=== PATIENT | female | born 1955 | race Caucasian/White ===

== ENCOUNTER → 2021-10-18 | Outpatient (CLI) | payer MEDICARE ==
[2021-10-18 14:59] LABS: HGB 12.4 gm/dL (11.4-16.0); MCH 28.3 pg (25.0-35.0); MCHC 31.9 g/dL (31.0-37.0); MCV 88.6 fL (80.0-100.0); Mean Platelet Volume 7.7; Platelet Count 357 k/uL (150-450); RBC 4.39 m/uL (3.80-5.40); RDW 14.6 % (11.5-15.5); WBC 9.6 k/uL (3.8-10.6)
[2021-10-18 15:13] LABS: ALT 19 U/L (4-34); AST 22 U/L (14-36); African American GFR (CKD) >90 (>60 ml/min/1.73 sqM); Albumin 4.1 g/dL (3.5-5.0); Alkaline Phosphatase 129 U/L (38-126); Anion Gap 12 mmol/L; Blood Urea Nitrogen 12 mg/dL (7-17); Calcium 9.3 mg/dL (8.4-10.2); Carbon Dioxide 27 mmol/L (22-30); Chloride 96 mmol/L (98-107); Glucose 107 mg/dL (74-99); Non-African American GFR(CKD) 80 (>60 ml/min/1.73 sqM); Potassium 3.9 mmol/L (3.5-5.1); Sodium 135 mmol/L (137-145); Total Bilirubin 0.3 mg/dL (0.2-1.3); Total Protein 7.2 g/dL (6.3-8.2)
[2021-10-18 15:45] LABS: INR 0.9 (<1.2); Partial Thromboplastin Time 24.2 sec (22.0-30.0)
[2021-10-18 16:24] LABS: Appearance,Urine Clear (Clear); Bilirubin,Urine Negative (Negative); Blood,Urine Negative (Negative); Color,Urine Light Yellow; Glucose,Urine (UA) Negative (Negative); Ketones,Urine Negative (Negative); Leukocyte Esterase,Urine Small (Negative); Nitrite,Urine Negative (Negative); PH, Urine 6.5 (5.0-8.0); Protein,Urine Negative (Negative); RBC,Urine <1 /hpf (0-5); Specific Gravity,Urine 1.005 (1.001-1.035); Urobilinogen,Urine <2.0 mg/dL (<2.0); WBC,Urine 15 /hpf (0-5)
== END | disposition home or self-care (01) ==
LOC: LABPAT 13:41
PROVIDERS: ATTEND Orthopaedic Surgery Sports Medicine
DX: Z01.812 Encounter for preprocedural laboratory examination (principal); Z79.01 Long term (current) use of anticoagulants
CPT/HCPCS: 36415; 80053; 81001; 85027; 85610; 85730; 87070

== ENCOUNTER 2021-10-28 06:17 | Observation (INO) | payer MEDICARE ==
[2021-10-22 10:42] VITALS: BMI 49.8
[~2021-10-28 06:17] MED LIST: ACETAMINOPHEN TAB 500 MG TAB PO PRN; GABAPENTIN 300 MG CAP PO PRN; MELOXICAM 7.5 MG TAB PO PRN; ONDANSETRON 4 MG/2 ML VIAL IVP PRN; TRANEXAMIC ACID 1,000 MG in SODIUM CHLORIDE 0.9% 100 ML IVPB PRN; VANCOMYCIN 2,000 MG in SODIUM CHLORIDE 0.9% 500 ML 500 ML IVPB PRN
[2021-10-28] MEDS ORDERED: DEXAMETHASONE SOD PHOSPHATE 4 MG/ML 1 ML VIAL IV ONE (06:43)
[2021-10-28] MEDS ORDERED: LIDOCAINE 1% (10MG/ML) FOR IV START INTRADERMA PRN (06:43)
[2021-10-28] MEDS ORDERED: MIDAZOLAM 2 MG/2 ML VIAL IV PRN (06:43)
[2021-10-28] MEDS ORDERED: ONDANSETRON 4 MG/2 ML VIAL IVP PRN ×2 (07:00→08:15)
[2021-10-28] MEDS ORDERED: HYDROmorphone 0.5 MG/0.5 ML SYRINGE IVP PRN ×2 (07:00→08:15)
[2021-10-28] MEDS: LACTATED RINGERS 1,000 ML IV SCH ×3 (07:02→23:02)
[2021-10-28] MEDS ORDERED: fentaNYL (PF) 50 MCG/ML 2 ML AMP IV ONE (07:33)
[2021-10-28] MEDS ORDERED: traMADol 50 MG TAB PO PRN (08:15)
[2021-10-28] MEDS ORDERED: MAGNESIUM HYDROXIDE 2,400 MG/10 ML CUP PO PRN (08:15)
[2021-10-28] MEDS ORDERED: bisacodyL 10 MG SUPP RECTAL PRN (08:15)
[2021-10-28] MEDS ORDERED: TEMAZEPAM 15 MG CAP PO PRN (08:15)
[2021-10-28] MEDS ORDERED: HYDROmorphone 0.2 MG/1 ML SYRINGE IVP PRN (08:15)
[2021-10-28] MEDS ORDERED: ACETAMINOPHEN TAB 325 MG TAB PO PRN (08:15)
[2021-10-28] MEDS ORDERED: NA PHOS,M-B/NA PHOS,DI-BA 133 ML ENEMA RECTAL PRN (08:15)
[2021-10-28] MEDS ORDERED: NALOXONE 0.4 MG/ML 1 ML VIAL IV PRN (08:15)
[2021-10-28] MEDS ORDERED: diazePAM 5 MG TAB PO PRN (08:15)
[2021-10-28] MEDS ORDERED: HYDROcodone/APAP 7.5-325MG 1 EACH TAB PO PRN (08:18)
[2021-10-28] MEDS ORDERED: SODIUM CHLORIDE 0.9% 100 ML BAG ONE (08:19)
[2021-10-28] MEDS ORDERED: PROPOFOL 10 MG/ML 20 ML VIAL IV ONE (08:19)
[2021-10-28] MEDS ORDERED: ROPIVACAINE 5 MG/ML 30 ML VIAL ONE (08:19)
[2021-10-28] MEDS ORDERED: TRANEXAMIC ACID 1,000 MG/10 ML VIAL ONE (08:19)
[2021-10-28] MEDS ORDERED: MIDAZOLAM 2 MG/2 ML VIAL ONE (08:19)
[2021-10-28] MEDS ORDERED: SODIUM CHLORIDE 0.9% (PF) 10 ML VIAL ONE (08:19)
[2021-10-28] MEDS ORDERED: ceFAZolin 1,000 MG VIAL IVPB ONE (08:21)
[2021-10-28] MEDS ORDERED: ceFAZolin 3,000 MG in SODIUM CHLORIDE 0.9% IRRIGATIO 3,000 ML IRRIGATION ONE (08:55)
[2021-10-28] MEDS ORDERED: ROPIVACAINE 0.2%-NS ON-Q PUMP 1,090 MG, EMPTY PAIN BALL 1 EACH MISCELLANE PRN (10:05)
--- NOTE | 2021-10-28 10:08 | P.ANPRN ---
Procedure Note - Anesthesia - Nerve Block Performed Left Adductor Canal Time Out Performed: Yes Date of Procedure: 10/28/21 Procedure Start Time: 07:36 Procedure Stop Time: 07:48 Location of Patient: PreOp Indication: Acute Post-Operative Pain, Requested by Surgeon (Dr Bazzi) Sedation Type: Sedate with meaningful contact maintained Preparation: Sterile Prep, Sterile Dressing Position: Supine Catheter: Indwelling Needle Types: Pajunk Needle Gauge: 21 Ultrasound used to visualize needle placement: Yes Ultrasound used to observe medication spread: Yes Injectate: 0.5% Ropivacaine (see comment for volume) (15cc) Blood Aspirated: No Pain Paresthesia on Injection Noted: No Resistance on Injection: Normal Image Stored and Saved: Yes Events: Uneventful and Well Tolerated
--- NOTE | 2021-10-28 10:11 | P.ANPRN ---
Procedure Note - Anesthesia - Nerve Block Performed Left iPack Time Out Performed: Yes Date of Procedure: 10/28/21 Procedure Start Time: 07:49 Procedure Stop Time: 07:59 Location of Patient: PreOp Indication: Acute Post-Operative Pain, Requested by Surgeon (Dr Bazzi) Sedation Type: Sedate with meaningful contact maintained Preparation: Sterile Prep Position: Supine Catheter: None Needle Types: Pajunk Needle Gauge: 21 Ultrasound used to visualize needle placement: Yes Ultrasound used to observe medication spread: Yes Injectate: 0.5% Ropivacaine (see comment for volume) (15cc + 5cc PF Normal saline) Blood Aspirated: No Pain Paresthesia on Injection Noted: No Resistance on Injection: Normal Image Stored and Saved: Yes Events: Uneventful and Well Tolerated
--- NOTE | 2021-10-28 10:53 | XR ---
Limited left knee HISTORY: Status post left knee arthroplasty 2 views of the left knee Patient is status post left knee arthroplasty. Some small ossific fragments are noted lateral to the joint. Alignment is maintained. Lucency is present within the soft tissues. IMPRESSION: Orthopedic follow-up, postop changes as described
--- NOTE | 2021-10-28 12:54 | OP ---
OPERATIVE REPORT DATE OF SURGERY: 10/28/2021 SURGEON: Tylor Bazzi MD. VIDEO GAMES STORYWRITER: JOSE Thurman. PREOPERATIVE DIAGNOSIS: Left knee osteoarthrosis. POSTOPERATIVE DIAGNOSIS: Left knee osteoarthrosis. OPERATION: Left total knee arthroplasty. ANESTHESIA: Spinal with sedation. ESTIMATED BLOOD LOSS: 100 mL. TOURNIQUET: Tourniquet time was 51 minutes at 250 mmHg. COMPLICATIONS: None apparent. DRAINS: None. DISPOSITION: Postanesthesia care unit. INDICATIONS: Tamica is a very pleasant 65-year-old female with longstanding history of left knee pain. History and physical examination are consist with advanced left knee osteoarthrosis. She has been through significant nonoperative management up to this point. Further treatment options were discussed and she decided to go forward with a left total knee arthroplasty. The risks of the procedure were discussed with her in detail. These risks include but are not limited to risk of infection, nerve damage, bleeding, pain, and a small risk of deep vein thrombosis which could lead to fatal pulmonary embolism. There is also risk of loosening of the implant which could require revision operation. The patient understands these risks. All of her questions were answered to her satisfaction. Appropriate informed consent was obtained. DESCRIPTION OF THE PROCEDURE: The patient identified in preoperative holding area. Surgical site was marked by both the patient and myself. She was given 2 grams of Ancef IV for prophylactic purposes. She was then transferred to the operative suite. She was placed supine on the operative table. Spinal anesthetic was then administered, dosed per the anesthesia department without apparent complication. Examination under anesthesia was then performed. The patient was 2-3 degrees shy of full extension. She had 95 degrees of flexion. The medial collateral ligament, lateral collateral ligament and posterior cruciate ligaments were stable. The tourniquet was then placed high on the left upper thigh well-padded in preparation for surgery. The patient's left lower extremity was then prepped and draped in usual sterile fashion. Standard surgical pause undertaken to ensure that we were operating the correct site and that appropriate preoperative antibiotics were given. All staff in the room were in agreement. We proceeded. The outlines of the patella marked with a surgical pen. The planned 12 cm vertical incision centered over the patella was marked with a surgical pen. The leg was then exsanguinated with an Esmarch dressing. The knee was then flexed and tourniquet inflated to 250 mmHg. Total tourniquet time for the procedure was 51 minutes. The incision was then made with a 10 blade scalpel. Dissection was carried down sharply through the overlying fascia. Great care was taken to minimize the skin flaps. The knee was then exposed using a standard medial parapatellar approach. A small cuff of quadriceps tendon was then left for suturing. She was in a bit of varus preoperatively. A standard medial release was then made. Superficial medial collateral ligament dissected off the bone around the posterior aspect of the proximal tibia. The meniscus was then excised as well. The lateral meniscus was also released anteriorly. The leg was then externally rotated. The patella was everted. The knee was flexed. Retractors were then placed to protect the collateral ligaments. I then proceeded to remove the infrapatellar fat pad. This was excised sharply tangentially with fibers of the patellar tendon. I then proceeded to remove the peripheral osteophytes. This was done with a rongeur. I then proceeded with a distal resection. She did have near full extension. A planned 9 mm resection was then done. The femoral canal was then entered in midline of the left femur approximately 10 mm anterior to the origin of posterior cruciate ligament. The blanca was then advanced down the center of the femur and placed intramedullary. Based on the preoperative radiographs, the angle between the anatomic and mechanical axis of the femur was approximately 4-5 degrees of valgus angle. The femoral cutting guide was then set at 4 degrees for the left knee. The distal femoral cutting guide was then advanced over the intramedullary blanca. This was seated firmly against the femur. I then, as mentioned, planned to take 9 mm off the distal femur. The cutting block was then secured onto the femur with pins. The jig was then removed. The distal cut was made through the slot of the block. The pins were then removed. The distal cutting block was removed. The accuracy of the distal femoral cuts was checked with two flat bars. I then proceeded with femoral sizing. Posterior referencing sizing guide was held firmly against the resected distal surface of the femur. The posterior condyles were resting on the posterior plane of the guide. The sizing guide was then placed on the anterior femur. The size was measured as a size 7. I then assessed for femoral rotation. The plan was for 3 degrees external rotation. Three degrees of external rotation was placed onto the jig. These holes were then marked. I then confirmed the rotation by three separate methods. This was done using epicondylar axis as well as Whitesides line and posterior referencing. It was deemed that the external rotation was proper. I then went forward and placed a femoral cutting block. This was placed over the previously placed pin holes. The Richie wing was then placed on the anterior slots to ensure that we would not notch the anterior femur with the anterior femoral cut. I then proceeded with the anterior femoral cut. This was flush with the anterior cortex of the femur. Posterior cuts were then made followed by the anterior chamfer cut and then the posterior chamfer cut. The cutting block was then removed. Throughout the resection, the collateral ligaments were protected with retractors. I then placed a trial size 7 femur. It was slightly wide but the narrow fit nicely and it fit flush with the distal end of the femur. The drill holes were then made. I then proceeded with the tibial cut. I planned for cruciate-retaining knee. The guide was placed and set for varus, valgus and for slope. The height was set for approximate 2 mm resection from the medial tibial plateau which was the lower side. I was happy with the alignment and the amount of resection. The cutting block was then pinned to the proximal tibia. The alignment rods were removed and the proximal tibia was resected with a reciprocating saw. Again, this was done with retractors protecting the collateral ligaments as well as the posterior cruciate ligament. I then proceeded to evaluate the flexion and extension gaps. A 10 mm block was then placed. The flexion and extension gaps were equal. I then proceeded with resection of the posterior osteophytes. She had very minimal posterior osteophytes. This is done using a curved osteotome. This resected the posterior osteophytes and posterior capsule stripping was done off the posterior aspect of the femur. The osteophytes were then removed. I then proceeded to resection of the patella. The thickness of the patella was measured using the caliper. The thickness was 22 mm. The thickness of the anticipated patellar dome was taken into account. The resection was then performed and confirmed to be equal in four quadrants using a caliper. Approximately 14 mm of bone remained after resection. A 29 x 8 standard patellar trial was then placed. The holes drilled and the trial was then placed. I then proceeded with sizing the tibial plate. A size D tibial plate fit very nicely. I then placed the trial femur, the tibial tray and the patellar button. A 10 mm trial tibial insert was also placed. The components fit very nicely. She had full extension and flexion. The extension and flexion gaps were equal and stable to both varus and valgus stress. The patella tracked appropriately. The tibial tray rotation was then marked with a Bovie. This was externally rotated properly. I then proceed with tibial preparation. First we drilled the femoral holes and removed the femoral component. The tibial tray was then set for proper external rotation as well as mediolateral placement on the tibia. It was then pinned into place. I then proceeded with punching the keel. I then decided to proceed with cementing of all of our components. The knee was thoroughly irrigated with sterile saline solution via pulse lavage. The lateral geniculate artery was identified and cauterized. All blood was removed from the bone of the tibia, femur and patella with pulse lavage. I then proceeded with cementing. Two packs of antibiotic bone cement were prepared on the back table by the certified ophthalmic surgical assistant. I then proceed with cementing of the tibia first. The cement was impacted into the keel as well as deeply seated into the bone. A second coat of cement was then placed. The tibia was then impacted in place. Excess cement was removed with Pitts[place]'s and jokers. I then proceeded with cementing the femoral component. The femoral component was also cemented using standard technique. Excess cement was removed. A 10 mm trial insert was then placed in the knee. It was brought in full extension with a constant axial load placed until the cement had hardened. The patellar component was then cemented. This was held firmly with a compressive device until the cement had dried. When the cement had dried, the knee was taken out of extension. All excess cement was removed from around the prosthesis. I then trialed the knee with a 10 mm insert. Flexion and extension gaps were appropriate. I then trialed with a 12 mm insert. The flexion and extension gaps felt much better. The knee was stable with a 12 mm insert. It came in full extension. I decided to go forward with a 12 mm cross-linked medial congruent cruciate-retaining tibial insert. Polyethylene was then placed onto the tibial tray and locked into place. The knee was then reduced. The knee was again further irrigated with sterile saline solution with antibiotic added. The tourniquet was then deflated. Total tourniquet time for the procedure was 51 minutes at 250 mmHg. Final components were Alok Persona size 7 narrow cruciate-retaining femoral component, a size D tibial tray, a 12 mm medial congruent cruciate-retaining polyethylene insert, and a 29 x 8 mm patella. I then proceeded with closure. Again, the knee was thoroughly irrigated. The quadriceps tendon and the medial retinaculum were reapproximated with #2 Ethibond suture. The extensor mechanism was then closed with a running #2 Quill suture. Subcutaneous tissues were closed with 2-0 Vicryl interrupted suture. The skin was closed with a running 3-0 Quill suture. Dermabond was applied to the incision. Sterile compressive dressing was then applied. All sponge and needle counts were deemed correct prior to closure. The patient tolerated procedure without apparent complication. She was transferred to the recovery room in stable condition. MMODL / IJN: [id number] /
[2021-10-28] MEDS ORDERED: ALPRAZolam 1 MG TAB PO PRN (15:02)
--- NOTE | 2021-10-28 15:10 | P.CONS ---
History of Present Illness - Reason for Consult Consult date: 10/28/21 - Chief Complaint Knee pain - History of Present Illness 65 y/o female with history of morbid obesity, hypertension, depression, anxiety, hypercholesterolemia here for left total knee replacement. Due to end-stage arthritis of the left knee she underwent left total knee arthroplasty today. Patient was seen postoperatively, she was in severe pain in the left knee. Ice was applied. Otherwise no complaints. No chest pain, shortness of breath. No fevers or chills. No recent illness. No nausea or vomiting, diarrhea. Review of Systems Complete review of system performed, pertinent positives per HPI, otherwise negative Past Medical History Past Medical History: Asthma, Cancer, CVA/TIA, GERD/Reflux, Hyperlipidemia, Hype rtension, Osteoarthritis (OA), Skin Disorder, Sleep Apnea/CPAP/BIPAP Additional Past Medical History / Comment(s): hx. breast cancer February 2021-had surg. & radiation, past hx. bronchitis, had covid 2019, had TIA years ago- no residual effects, couple sores on arms from itching, uses CPAP History of Any Multi-Drug Resistant Organisms: None Reported Past Surgical History: Adenoidectomy, Breast Surgery, Hysterectomy, Orthopedic Surgery, Tonsillectomy Additional Past Surgical History / Comment(s): multiple breast biopsies, right breast partial mastectomy, juan carlos CTS, ORIF left ankle, hemorrhoidectomy Past Anesthesia/Blood Transfusion Reactions: Postoperative Nausea & Vomiting (PONV) Additional Past Anesthesia/Blood Transfusion Reaction / Comm: claustrophobic Past Psychological History: Anxiety Smoking Status: Former smoker Past Alcohol Use History: Rare Additional Past Alcohol Use History / Comment(s): quit smoking >30 yrs. ago, smoked for couple years only Past Drug Use History: None Reported - Past Family History Mother Family Medical History: Cancer Medications and Allergies Home Medications Medication Instructions Recorded Confirmed Type ALPRAZolam [Xanax] 1 mg PO Q8H PRN 10/22/21 10/28/21 History Anastrozole [Arimidex] 1 mg PO DAILY 10/22/21 10/28/21 History Atorvastatin [Lipitor] 40 mg PO HS 10/22/21 10/28/21 History Bisoprolol-Hctz 10-6.25 mg [Ziac 1 tab PO HS 10/22/21 10/28/21 History 10-6.25 MG] Calcium Carbonate/Vitamin D3 1 each PO DAILY 10/22/21 10/28/21 History [Calcium 500-Vit D3 15 Mcg (600 Iu)] FLUoxetine HCL [PROzac] 80 mg PO HS 10/22/21 10/28/21 History Ibuprofen [Motrin] 800 mg PO Q8H PRN 10/22/21 10/28/21 History Loratadine-Pseudoeph 10-240 mg 1 tab PO DAILY 10/22/21 10/28/21 History [Claritin-D 24 Hour] Omeprazole [PriLOSEC] 40 mg PO HS 10/22/21 10/28/21 History Oxybutynin Chloride [Ditropan XL] 5 mg PO HS 10/22/21 10/28/21 History lamoTRIgine [LaMICtal] 75 mg PO HS 10/22/21 10/28/21 History traMADol HCL [Ultram] 50 mg PO Q6H PRN 10/22/21 10/28/21 History Allergies Allergy/AdvReac Type Severity Reaction Status Date / Time doxycycline Allergy Rash/Hives Verified 10/28/21 06:56 Penicillins Allergy Unknown Verified 10/28/21 06:56 Childhood Physical Exam Vitals: Vital Signs Temp Pulse Pulse Resp BP Pulse Ox 10/28/21 15:05 85 16 114/76 94 L 10/28/21 13:00 66 16 114/62 97 10/28/21 12:30 68 16 121/58 100 10/28/21 12:00 71 16 115/60 100 10/28/21 11:30 65 16 120/60 100 10/28/21 11:07 66 16 125/65 100 10/28/21 10:52 67 16 119/58 100 10/28/21 10:37 68 16 122/65 99 10/28/21 10:22 97 F L 73 14 133/68 99 10/28/21 07:47 78 16 126/60 99 10/28/21 06:54 99.2 F 85 18 186/93 97 Intake and Output 10/28/21 10/28/21 10/28/21 06:59 14:59 22:59 Intake Total 901 Output Total 100 Balance 801 Intake: IV 901 Output: Estimated Blood Loss 100 Other: Weight 131 kg 131 kg Constitutional: No acute distress, conversant, pleasant Eyes:Anicteric sclerae, moist conjunctiva, no lid-lag, PERRLA, ENMT: Oropharynx clear, no erythema, exudates Neck: Supple, FROM, no masses, or JVD, No carotid bruits, No thyromegaly Lungs: Clear to auscultation, Clear to percussion, Normal respiratory effort, no accessory muscle use Cardiovascular: Heart regular in rate and rhythm, No murmurs, gallops, or rubs, No peripheral edema Abdominal: Soft, Nontender, no guarding, rebound or rigidity, Normoactive bowel sounds, No hepatomegaly, No splenomegaly, No palpable mass Skin: Normal temperature, tone, texture, turgor, no induration, No subcutaneous nodules, No rash, lesions, No ulcers Extremities: Left knee dressing applied. No digital cyanosis, No clubbing, Pedal pulses intact and symmetrical, Radial pulses intact and symmetrical, No calf tenderness Psychiatric: Alert and oriented to person, place and time, appropriate affect, intact judgement Neuro: Muscles Strength 5/5 in all 4 extremities, Sensation to light touch grossly present throughout, Cranial nerves II-XII grossly intact, no focal sensory deficits Assessment and Plan Plan: Status post left total knee arthroplasty post operative day #0 Pain control and DVT prophylaxis per your surgical management PT Essential hypertension Resume bisoprolol/hctz meds Monitor blood pressure Hypercholesterolemia Resume statin Depression/anxiety Resume Paxil, lamotrigine and Ativan when necessary. DVT prophylaxis SCDs and aspirin Anticipated discharge: In a.m. Disposition: Home
[2021-10-28] MEDS: ceFAZolin 3 GM in SODIUM CHLORIDE 0.9% 100 ML IVPB SCH (15:41)
[2021-10-28] MEDS: HYDROmorphone 0.5 MG/0.5 ML SYRINGE IVP PRN ×3 (15:50→22:56)
[2021-10-28] MEDS: SENNOSIDES-DOCUSATE SODIUM 1 EACH TAB PO SCH (22:05)
[2021-10-28] MEDS: FLUoxetine HCL 20 MG CAP PO SCH (22:05)
[2021-10-28] MEDS: OXYBUTYNIN XL 5 MG TAB.ER.24 PO SCH (22:06)
[2021-10-28] MEDS: BISOPROLOL-HCTZ 10-6.25 MG 1 EACH TAB PO SCH (22:06)
[2021-10-28] MEDS: ATORVASTATIN 40 MG TAB PO SCH (22:06)
[2021-10-28] MEDS: PANTOPRAZOLE 40 MG TABLET PO SCH (22:06)
[2021-10-28] MEDS: ASPIRIN 81 MG PO SCH (22:06)
[2021-10-28] MEDS: lamoTRIgine 25 MG TAB PO SCH (22:06)
[2021-10-29] MEDS: ceFAZolin 3 GM in SODIUM CHLORIDE 0.9% 100 ML IVPB SCH (01:03)
[2021-10-29] MEDS: HYDROcodone/APAP 7.5-325MG 1 EACH TAB PO PRN ×2 (02:17→09:42)
[2021-10-29] MEDS: hydrOXYzine pamoate 25 MG CAP PO PRN ×4 (02:17→20:10)
[2021-10-29] MEDS: HYDROmorphone 0.5 MG/0.5 ML SYRINGE IVP PRN ×2 (03:05→07:24)
[2021-10-29] MEDS: LACTATED RINGERS 1,000 ML IV SCH ×3 (06:30→19:27)
[2021-10-29] MEDS: MULTIVITAMINS, THERA 1 EACH TAB PO SCH (08:25)
[2021-10-29] MEDS: LORATADINE-PSEUDOEPH 5-120 MG 1 EACH TAB.ER.12H PO SCH ×2 (08:25→21:30)
[2021-10-29] MEDS: CALCIUM CARB-VIT D 500 MG-5 MCG TAB PO SCH (08:25)
[2021-10-29] MEDS: ASPIRIN 81 MG PO SCH ×2 (08:25→21:30)
--- NOTE | 2021-10-29 08:34 | P.PN ---
Progress Note - Text The patient is status post left adductor canal catheter placement. The catheter was placed for postoperative pain control, status post total left knee arthroplasty. Ropivacaine 0.2% is infusing at 10 mLs per hour. The patient has no complaints of[ left] lower extremity numbness or weakness. Patient's VAS score is 5-6 -10. She has received supplemental pain medicine from the service. It is difficult to tell whether the catheter is still in optimal position. Rate has been increased to 10 ML's per hour and may be increased to 12 mL's per hour if needed. Plan: continue infusion and adjust it as needed.
[2021-10-29 09:13] LABS: Basophils # (A) 0.01 X 10*3/uL (0.00-0.10); Basophils % (A) 0.1 %; Eosinophils # (A) 0 X 10*3/uL (0.04-0.35); Eosinophils % (A) 0 %; HCT 35.1 % (37.2-46.3); Lymphocytes # (A) 1.23 X 10*3/uL (0.90-5.00); MCH 27.4 pg (27.0-32.0); MCHC 31.3 g/dL (32.0-37.0); MCV 87.3 fL (80.0-97.0); Mean Platelet Volume 10.4 fL (9.5-12.2); Monocytes # (A) 1.26 X 10*3/uL (0.20-1.00); Monocytes % (A) 9.2 %; Neutrophils # (A) 11.05 X 10*3/uL (1.80-7.70); Neutrophils % (A) 81.1 %; Platelet Count 337 X 10*3/uL (140-440); RBC 4.02 X 10*6/uL (4.10-5.20); RDW 15.5 % (11.5-14.5); WBC 13.63 X 10*3/uL (4.50-10.00)
[2021-10-29] MEDS ORDERED: oxyCODONE-APAP 7.5-325MG 1 EACH TAB PO PRN (10:06)
--- NOTE | 2021-10-29 12:27 | P.PN ---
Subjective Progress Note Date: 10/29/21 Principal diagnosis: Left knee arthroplasty Patient is having severe pain in the left knee. She has been getting IV Dilaudid but it has not been adequate for pain control according to patient. Objective - Vital Signs Vital signs: Vital Signs Temp 97.8 F 10/29/21 08:00 Pulse 80 10/29/21 08:00 Resp 19 10/29/21 08:00 BP 121/65 10/29/21 08:00 Pulse Ox 92 L 10/29/21 08:00 Intake & Output 10/28/21 10/29/21 10/29/21 18:59 06:59 18:59 Intake Total 901 Output Total 100 Balance 801 Weight 131 kg Intake: IV 901 Output: Estimated Blood Loss 100 Other: Voiding Method Toilet Toilet # Voids 1 1 - Exam Constitutional: No acute distress, conversant, pleasant Eyes:Anicteric sclerae, moist conjunctiva, no lid-lag, PERRLA, ENMT: Oropharynx clear, no erythema, exudates Neck: Supple, FROM, no masses, or JVD, No carotid bruits, No thyromegaly Lungs: Clear to auscultation, Clear to percussion, Normal respiratory effort, no accessory muscle use Cardiovascular: Heart regular in rate and rhythm, No murmurs, gallops, or rubs, No peripheral edema Abdominal: Soft, Nontender, no guarding, rebound or rigidity, Normoactive bowel sounds, No hepatomegaly, No splenomegaly, No palpable mass Skin: Normal temperature, tone, texture, turgor, no induration, No subcutaneous nodules, No rash, lesions, No ulcers Extremities: Left knee dressing applied. No digital cyanosis, No clubbing, Pedal pulses intact and symmetrical, Radial pulses intact and symmetrical, No calf tenderness Psychiatric: Alert and oriented to person, place and time, appropriate affect, intact judgement Neuro: Muscles Strength 5/5 in all 4 extremities, Sensation to light touch grossly present throughout, Cranial nerves II-XII grossly intact, no focal sensory deficits - Labs CBC & Chem 7: 10/29/21 05:33 Labs: Abnormal Lab Results - Last 24 Hours (Table) 10/29/21 Range/Units 05:33 WBC 13.63 H (4.50-10.00) X 10*3/uL RBC 4.02 L (4.10-5.20) X 10*6/uL Hgb 11.0 L (12.0-15.0) g/dL Hct 35.1 L (37.2-46.3) % MCHC 31.3 L (32.0-37.0) g/dL RDW 15.5 H (11.5-14.5) % Immature Gran # 0.08 H (0.00-0.04) X 10*3/uL Neutrophils # 11.05 H (1.80-7.70) X 10*3/uL Monocytes # 1.26 H (0.20-1.00) X 10*3/uL Eosinophils # 0 L (0.04-0.35) X 10*3/uL Assessment and Plan Plan: Status post left total knee arthroplasty post operative day #0 Pain control and DVT prophylaxis per your surgical management PT Essential hypertension Resume bisoprolol/hctz meds Monitor blood pressure Hypercholesterolemia Resume statin Depression/anxiety Resume Paxil, lamotrigine and Ativan when necessary. DVT prophylaxis SCDs and aspirin Anticipated discharge: In a.m. Disposition: Home
[2021-10-29] MEDS: oxyCODONE-APAP 7.5-325MG 1 EACH TAB PO PRN ×2 (15:29→21:28)
--- NOTE | 2021-10-29 15:56 | P.PN ---
Subjective Progress Note Date: 10/29/21 Principal diagnosis: Left TKA Patient is seen at bedside this morning. She is postop day #1 from left total knee arthroplasty. She has pain at the surgical site as expected but denies any new complaints. She denies numbness, tingling or calf pain. Review of systems is negative for fever, chills, chest pain, shortness of breath or other Objective - Vital Signs Vital signs: Vital Signs Temp 97.8 F 10/29/21 08:00 Pulse 80 10/29/21 08:00 Resp 19 10/29/21 08:00 BP 121/65 10/29/21 08:00 Pulse Ox 92 L 10/29/21 08:00 Intake & Output 10/28/21 10/29/21 10/29/21 18:59 06:59 18:59 Intake Total 901 Output Total 100 Balance 801 Weight 131 kg Intake: IV 901 Output: Estimated Blood Loss 100 Other: Voiding Method Toilet Toilet # Voids 1 1 - Exam Inspection reveals a benign surgical wound. There is no active bleeding or drainage. Neurovascular status is intact throughout the lower extremity with motor and sensation fully intact. Calf is soft and nontender. 2+ dorsalis pedis pulse and less than 2 second cap refill is present. - Constitutional General appearance: Present: no acute distress - Labs CBC & Chem 7: 10/29/21 05:33 Labs: Abnormal Lab Results - Last 24 Hours (Table) 10/29/21 Range/Units 05:33 WBC 13.63 H (4.50-10.00) X 10*3/uL RBC 4.02 L (4.10-5.20) X 10*6/uL Hgb 11.0 L (12.0-15.0) g/dL Hct 35.1 L (37.2-46.3) % MCHC 31.3 L (32.0-37.0) g/dL RDW 15.5 H (11.5-14.5) % Immature Gran # 0.08 H (0.00-0.04) X 10*3/uL Neutrophils # 11.05 H (1.80-7.70) X 10*3/uL Monocytes # 1.26 H (0.20-1.00) X 10*3/uL Eosinophils # 0 L (0.04-0.35) X 10*3/uL Assessment and Plan (1) Osteoarthritis of left knee Narrative/Plan: She will continue with routine postop orthopedic protocol including pain management, wound care, PT, DVT prophylaxis and medical management. We will adjust pain medications to achieve better pain control. We Expect that she will transfer to home tomorrow Current Visit: Yes Status: Acute Code(s): M17.12 - UNILATERAL PRIMARY OSTEOARTHRITIS, LEFT KNEE SNOMED Code(s): 544584180854646 Time with Patient: Less than 30
[2021-10-29] MEDS: lamoTRIgine 25 MG TAB PO SCH (21:30)
[2021-10-29] MEDS: ATORVASTATIN 40 MG TAB PO SCH (21:30)
[2021-10-29] MEDS: BISOPROLOL-HCTZ 10-6.25 MG 1 EACH TAB PO SCH (21:30)
[2021-10-29] MEDS: PANTOPRAZOLE 40 MG TABLET PO SCH (21:30)
[2021-10-29] MEDS: FLUoxetine HCL 20 MG CAP PO SCH (21:30)
[2021-10-29] MEDS: OXYBUTYNIN XL 5 MG TAB.ER.24 PO SCH (21:30)
[2021-10-29] MEDS: SENNOSIDES-DOCUSATE SODIUM 1 EACH TAB PO SCH (21:30)
[2021-10-30] MEDS: LACTATED RINGERS 1,000 ML IV SCH ×3 (00:13→10:55)
[2021-10-30] MEDS: oxyCODONE-APAP 7.5-325MG 1 EACH TAB PO PRN ×3 (03:56→14:29)
--- NOTE | 2021-10-30 08:34 | XR ---
EXAMINATION TYPE: XR chest 2V DATE OF EXAM: 10/30/2021 COMPARISON: NONE HISTORY: Postoperative hypoxia. TECHNIQUE: Frontal and lateral views of the chest are obtained. FINDINGS: There is no focal air space opacity, pleural effusion, or pneumothorax seen. The cardiac silhouette size is enlarged. The osseous structures are intact. IMPRESSION: Cardiomegaly without acute pulmonary process.
[2021-10-30] MEDS: CALCIUM CARB-VIT D 500 MG-5 MCG TAB PO SCH (09:05)
[2021-10-30] MEDS: hydrOXYzine pamoate 25 MG CAP PO PRN ×2 (09:05→14:29)
[2021-10-30] MEDS: ASPIRIN 81 MG PO SCH (09:05)
[2021-10-30] MEDS: LORATADINE-PSEUDOEPH 5-120 MG 1 EACH TAB.ER.12H PO SCH (09:07)
[2021-10-30 09:44] LABS: ALT 13 U/L (4-34); AST 22 U/L (14-36); African American GFR (CKD) >90 (>60 ml/min/1.73 sqM); Albumin 3.2 g/dL (3.5-5.0); Albumin/Globulin Ratio 1.3; Alkaline Phosphatase 102 U/L (38-126); Anion Gap 7 mmol/L; Blood Urea Nitrogen 14 mg/dL (7-17); Calcium 8.5 mg/dL (8.4-10.2); Carbon Dioxide 28 mmol/L (22-30); Chloride 96 mmol/L (98-107); Globulin 2.5 g/dL; Glucose 128 mg/dL (74-99); Magnesium 1.6 mg/dL (1.6-2.3); Non-African American GFR(CKD) 84 (>60 ml/min/1.73 sqM); Potassium 3.4 mmol/L (3.5-5.1); Sodium 131 mmol/L (137-145); Total Bilirubin 0.5 mg/dL (0.2-1.3); Total Protein 5.7 g/dL (6.3-8.2)
--- NOTE | 2021-10-30 09:51 | P.DS ---
Providers Date of admission: 10/29/21 14:38 Expected date of discharge: 10/30/21 Attending physician: Tylor Bazzi Consults: 10/28/21 08:15 Consult Physician Routine Consulting Provider: Rosendo Balderas Consult Reason/Comments: post op medical management Do you want consulting provider notified?: Yes Primary care physician: Christine Kim MD - Discharge Diagnosis(es) (1) Osteoarthritis of left knee Current Visit: Yes Status: Acute (2) Status post total left knee replacement Current Visit: Yes Status: Acute Hospital Course: This is a 65-year-old female who was last seen with complaint of continued left knee pain. The patient has a known history of degenerative arthritis of the left knee and presents to discuss surgical options. After discussion and consideration the patient elects to proceed with total left knee arthroplasty. The patient is seen preoperatively by her primary care physician and cleared for surgery. The patient is admitted to [facility] for total left knee arthroplasty. The procedures performed without complication or sequelae. He is doing well postoperatively. Vital signs are stable at discharge. Labs are stable at discharge. the patient is ambulating well with walker with minimal assistance. The patient is discharged to home on postop day #1 pending medical clearance. Please see orders and refer to the [facility] rec for accurate list of medications. Patient Condition at Discharge: Good Plan - Discharge Summary Discharge Rx Participant: Yes New Discharge Prescriptions: New oxyCODONE HCL/ACETAMINOPHEN [Percocet 7.5-325 mg] 1 tab PO Q4HR PRN #42 tab PRN Reason: Pain Aspirin [Adult Low Dose Aspirin EC] 81 mg PO BID #60 tab Docusate [Colace] 100 mg PO BID #60 capsule No Action traMADol HCL [Ultram] 50 mg PO Q6H PRN PRN Reason: Pain Loratadine-Pseudoeph 10-240 mg [Claritin-D 24 Hour] 1 tab PO DAILY Atorvastatin [Lipitor] 40 mg PO HS ALPRAZolam [Xanax] 1 mg PO Q8H PRN PRN Reason: Anxiety Oxybutynin Chloride [Ditropan XL] 5 mg PO HS lamoTRIgine [LaMICtal] 75 mg PO HS Omeprazole [PriLOSEC] 40 mg PO HS Ibuprofen [Motrin] 800 mg PO Q8H PRN PRN Reason: Pain FLUoxetine HCL [PROzac] 80 mg PO HS Bisoprolol-Hctz 10-6.25 mg [Ziac 10-6.25 MG] 1 tab PO HS Anastrozole [Arimidex] 1 mg PO DAILY Calcium Carbonate/Vitamin D3 [Calcium 500-Vit D3 15 Mcg (600 Iu)] 1 each PO DAILY Discharge Medication List ALPRAZolam [Xanax] 1 mg PO Q8H PRN 10/22/21 [History] Anastrozole [Arimidex] 1 mg PO DAILY 10/22/21 [History] Atorvastatin [Lipitor] 40 mg PO HS 10/22/21 [History] Bisoprolol-Hctz 10-6.25 mg [Ziac 10-6.25 MG] 1 tab PO HS 10/22/21 [History] Calcium Carbonate/Vitamin D3 [Calcium 500-Vit D3 15 Mcg (600 Iu)] 1 each PO DAILY 10/22/21 [History] FLUoxetine HCL [PROzac] 80 mg PO HS 10/22/21 [History] Ibuprofen [Motrin] 800 mg PO Q8H PRN 10/22/21 [History] Loratadine-Pseudoeph 10-240 mg [Claritin-D 24 Hour] 1 tab PO DAILY 10/22/21 [History] Omeprazole [PriLOSEC] 40 mg PO HS 10/22/21 [History] Oxybutynin Chloride [Ditropan XL] 5 mg PO HS 10/22/21 [History] lamoTRIgine [LaMICtal] 75 mg PO HS 10/22/21 [History] traMADol HCL [Ultram] 50 mg PO Q6H PRN 10/22/21 [History] Aspirin [Adult Low Dose Aspirin EC] 81 mg PO BID #60 tab 10/29/21 [Rx] Docusate [Colace] 100 mg PO BID #60 capsule 10/29/21 [Rx] oxyCODONE HCL/ACETAMINOPHEN [Percocet 7.5-325 mg] 1 tab PO Q4HR PRN #42 tab 10/29/21 [Rx] Follow up Appointment(s)/Referral(s): [facility], [NON-STAFF] - ([facility] will call you to schedule you in home physical therapy for 1-2 days after leaving the hospital. Please call them if you have any questions regarding home care services. ) Tylor Bazzi MD [STAFF PHYSICIAN] - 10 Days Activity/Diet/Wound Care/Special Instructions: keep wound clean and dry take meds as directed may shower in 3 days if no bleeding F/U with Dr. Bazzi in office weightbear as tolerated
[2021-10-30] MEDS ORDERED: POTASSIUM CHLORIDE ER 20 MEQ TAB.ER PO STA (11:29)
--- NOTE | 2021-10-30 11:31 | P.PN ---
Subjective Progress Note Date: 10/30/21 Principal diagnosis: Left knee arthroplasty Patient currently doing well, participating with therapy. Her pain is improved. No fevers or chills, no nausea or vomiting. Objective - Vital Signs Vital signs: Vital Signs Temp 98.2 F 10/30/21 08:00 Pulse 85 10/30/21 08:00 Resp 18 10/30/21 08:00 BP 121/88 10/30/21 08:00 Pulse Ox 95 10/30/21 08:00 Intake & Output 10/29/21 10/30/21 10/30/21 18:59 06:59 18:59 Intake Total 200 Balance 200 Intake: Oral 200 Other: Voiding Method Toilet Toilet # Voids 3 1 - Exam Constitutional: No acute distress, conversant, pleasant Eyes:Anicteric sclerae, moist conjunctiva, no lid-lag, PERRLA, ENMT: Oropharynx clear, no erythema, exudates Neck: Supple, FROM, no masses, or JVD, No carotid bruits, No thyromegaly Lungs: Clear to auscultation, Clear to percussion, Normal respiratory effort, no accessory muscle use Cardiovascular: Heart regular in rate and rhythm, No murmurs, gallops, or rubs, No peripheral edema Abdominal: Soft, Nontender, no guarding, rebound or rigidity, Normoactive bowel sounds, No hepatomegaly, No splenomegaly, No palpable mass Skin: Normal temperature, tone, texture, turgor, no induration, No subcutaneous nodules, No rash, lesions, No ulcers Extremities: Left knee dressing applied. No digital cyanosis, No clubbing, Pedal pulses intact and symmetrical, Radial pulses intact and symmetrical, No calf tenderness Psychiatric: Alert and oriented to person, place and time, appropriate affect, intact judgement Neuro: Muscles Strength 5/5 in all 4 extremities, Sensation to light touch grossly present throughout, Cranial nerves II-XII grossly intact, no focal sensory deficits - Labs CBC & Chem 7: 10/29/21 05:33 10/30/21 09:15 Labs: Abnormal Lab Results - Last 24 Hours (Table) 10/30/21 Range/Units 09:15 Sodium 131 L (137-145) mmol/L Potassium 3.4 L (3.5-5.1) mmol/L Chloride 96 L (98-107) mmol/L Glucose 128 H (74-99) mg/dL Total Protein 5.7 L (6.3-8.2) g/dL Albumin 3.2 L (3.5-5.0) g/dL Assessment and Plan Plan: Status post left total knee arthroplasty post operative day #0 Pain control and DVT prophylaxis per your surgical management PT Hypokalemia Replace Essential hypertension Resume bisoprolol/hctz meds Monitor blood pressure Hypercholesterolemia Resume statin Depression/anxiety Resume Paxil, lamotrigine and Ativan when necessary. DVT prophylaxis SCDs and aspirin Anticipated discharge: Today Disposition: Home with home PT
[2021-10-30] MEDS: MULTIVITAMINS, THERA 1 EACH TAB PO SCH (12:05)
[2021-10-30 14:01] VITALS: BP 135/67; PULSE 75; RESP 16; TEMP 98
== END 2021-10-30 16:08 | disposition home health service (06) ==
LOC: OR 06:17 → 4SSUR 10:22 → OR 10-29 14:38 → 4SSUR 10-29 14:38
PROVIDERS: ADMIT Orthopaedic Surgery Sports Medicine; ATTEND Orthopaedic Surgery Sports Medicine
DX: M17.12 Unilateral primary osteoarthritis, left knee (principal); E87.6 Hypokalemia; I11.9 Hypertensive heart disease without heart failure; G47.33 Obstructive sleep apnea (adult) (pediatric); M21.162 Varus deformity, not elsewhere classified, left knee; E78.00 Pure hypercholesterolemia, unspecified; J45.909 Unspecified asthma, uncomplicated; E78.5 Hyperlipidemia, unspecified; F41.9 Anxiety disorder, unspecified; F32.A Depression, unspecified; R26.81 Unsteadiness on feet; F40.240 Claustrophobia; H91.90 Unspecified hearing loss, unspecified ear; E66.01 Morbid (severe) obesity due to excess calories; Z68.42 Body mass index [BMI] 45.0-49.9, adult; Z20.822 Contact with and (suspected) exposure to COVID-19; Z79.811 Long term (current) use of aromatase inhibitors; Z79.899 Other long term (current) drug therapy; Z88.1 Allergy status to other antibiotic agents; Z88.0 Allergy status to penicillin; Z97.3 Presence of spectacles and contact lenses; Z90.11 Acquired absence of right breast and nipple; Z87.891 Personal history of nicotine dependence; Z85.3 Personal history of malignant neoplasm of breast; Z86.73 Personal history of transient ischemic attack (TIA), and cerebral infarction without residual deficits; Z92.3 Personal history of irradiation; Z82.49 Family history of ischemic heart disease and other diseases of the circulatory system; Z84.89 Family history of other specified conditions; Z80.3 Family history of malignant neoplasm of breast; Z80.0 Family history of malignant neoplasm of digestive organs; Z82.0 Family history of epilepsy and other diseases of the nervous system; Z83.3 Family history of diabetes mellitus
CPT/HCPCS: 97116; 97110; 97161; 64999; 64448; 76942; 88305; 83880; 80053; 83735; 85025; 88311; 87635; 73560; 71046; 27447; G0378 ×2; C1776; C1713; J2250; J3370; J1100; J0690 ×3; J2405; J3010; J2795 ×2; J2704; J1170 ×2; J1790

== ENCOUNTER → 2024-11-08 | Outpatient (CLI) | payer MEDICARE ==
[2024-11-08 15:07] LABS: Partial Thromboplastin Time 24.6 sec (22.0-30.0); Prothrombin Time 10.7 sec (10.0-12.5)
[2024-11-08 18:38] LABS: HCT 39.1 % (37.2-46.3); HGB 12.5 g/dL (12.0-15.0); MCH 28.2 pg (27.0-32.0); MCV 88.3 FL (80.0-97.0); Mean Platelet Volume 10.4 FL (9.5-12.2); NRBC Per 100 WBC 0 X 10*3/uL (0.00-0.01); Platelet Count 263 X 10*3/uL (140-440); RBC 4.43 X 10*6/uL (4.10-5.20); RDW 14.5 % (11.5-14.5); WBC 7.79 X 10*3/uL (4.50-10.00)
[2024-11-08 19:36] LABS: ALT 18 U/L (8-44); AST 21 U/L (13-35); Albumin 4.1 g/dL (3.8-4.9); Albumin/Globulin Ratio 1.58 Ratio (1.60-3.17); Alkaline Phosphatase 138 U/L (41-126); BUN/Creat Ratio 20.43 Ratio (12.00-20.00); Blood Urea Nitrogen 14.3 mg/dL (9.0-27.0); Calcium 9.6 mg/dL (8.7-10.3); Carbon Dioxide 28.4 mmol/L (21.6-31.8); Chloride 100 mmol/L (96-109); Globulin 2.6 g/dL (1.6-3.3); Glucose 73 mg/dL (70-110); Sodium 139 mmol/L (135-145); Total Bilirubin 0.3 mg/dL (0.3-1.2); Total Protein 6.7 g/dL (6.2-8.2)
== END | disposition home or self-care (01) ==
LOC: LABWHC1 13:40
PROVIDERS: ATTEND Orthopaedic Surgery Sports Medicine
DX: Z01.818 Encounter for other preprocedural examination (principal); M17.11 Unilateral primary osteoarthritis, right knee; Z22.322 Carrier or suspected carrier of Methicillin resistant Staphylococcus aureus
CPT/HCPCS: 36415; 80053; 85027; 85610; 85730; 87070; 93005

== ENCOUNTER 2024-11-14 06:13 | Day surgery (SDC) | payer MEDICARE ==
[~2024-11-14 06:13] MED LIST changes: -ACETAMINOPHEN TAB 500 MG TAB PO PRN; -GABAPENTIN 300 MG CAP PO PRN; -MELOXICAM 7.5 MG TAB PO PRN; +TRANEXAMIC 1,000 MG/100ML-NACL 1,000 MG in SALINE 1 100ML.BAG IVPB PRN; -TRANEXAMIC ACID 1,000 MG in SODIUM CHLORIDE 0.9% 100 ML IVPB PRN; -VANCOMYCIN 2,000 MG in SODIUM CHLORIDE 0.9% 500 ML 500 ML IVPB PRN
[2024-11-14] MEDS ORDERED: LIDOCAINE 1% (10MG/ML) FOR IV START INTRADERMA PRN (06:30)
[2024-11-14] MEDS: MELOXICAM 7.5 MG TAB PO PRN (06:49)
[2024-11-14] MEDS: GABAPENTIN 300 MG CAP PO PRN (06:50)
[2024-11-14] MEDS: ONDANSETRON 4 MG/2 ML VIAL IVP ONE (06:50)
[2024-11-14] MEDS: DEXAMETHASONE SOD PHOSPHATE 4 MG/ML 1 ML VIAL IV ONE (06:55)
[2024-11-14] MEDS: LACTATED RINGERS 1,000 ML IV SCH ×2 (06:55→12:46)
[2024-11-14] MEDS: fentaNYL (PF) 50 MCG/ML 2 ML AMP IVP PRN (07:08)
[2024-11-14] MEDS: MIDAZOLAM 2 MG/2 ML VIAL IV PRN (07:08)
[2024-11-14] MEDS ORDERED: ROPIVACAINE 5 MG/ML 30 ML VIAL ONE (07:41)
[2024-11-14] MEDS ORDERED: PROPOFOL 10 MG/ML 20 ML VIAL IV ONE (07:41)
[2024-11-14] MEDS ORDERED: fentaNYL (PF) 50 MCG/ML 2 ML AMP ONE (07:41)
[2024-11-14] MEDS ORDERED: MIDAZOLAM 2 MG/2 ML VIAL ONE (07:41)
[2024-11-14] MEDS: IV FLUID CONTINUATION 1,000 ML IV ONE (07:41)
[2024-11-14] MEDS ORDERED: DEXAMETHASONE SOD PHOSPHATE 4 MG/ML 1 ML VIAL ONE (07:41)
[2024-11-14] MEDS ORDERED: TRANEXAMIC 1,000 MG/100ML-NACL PREMIX BAG ONE (07:41)
[2024-11-14] MEDS: ceFAZolin 3 GM in SODIUM CHLORIDE 0.9% 100 ML IVPB PRN (07:45)
--- NOTE | 2024-11-14 07:57 | P.ANPRN ---
Procedure Note - Anesthesia - Nerve Block Performed Right iPack Single Time Out Performed: Yes Date of Procedure: 11/14/24 Procedure Start Time: 07:07 Procedure Stop Time: 07:12 Location of Patient: PreOp Indication: Acute Post-Operative Pain, Analgesia, Requested by Surgeon Sedation Type: Sedate with meaningful contact maintained Preparation: Sterile Prep Position: Left Lateral Catheter: None Needle Types: Pajunk Needle Gauge: 21 Ultrasound used to visualize needle placement: Yes Ultrasound used to observe medication spread: Yes Injectate: 0.5% Ropivacaine (see comment for volume) ([id number]) Blood Aspirated: No Pain Paresthesia on Injection Noted: No Resistance on Injection: Normal Image Stored and Saved: Yes Events: Uneventful and Well Tolerated
--- NOTE | 2024-11-14 07:59 | P.ANPRN ---
Procedure Note - Anesthesia - Nerve Block Performed Right Adductor Canal Infusion Time Out Performed: Yes Date of Procedure: 11/14/24 Procedure Start Time: 07:12 Procedure Stop Time: 07:17 Location of Patient: PreOp Indication: Acute Post-Operative Pain, Analgesia, Requested by Surgeon Sedation Type: Sedate with meaningful contact maintained Preparation: Sterile Prep Position: Supine Catheter: Indwelling Needle Types: On-Q Needle Gauge: 21 Ultrasound used to visualize needle placement: Yes Ultrasound used to observe medication spread: Yes Injectate: 0.5% Ropivacaine (see comment for volume) ([id number]) Blood Aspirated: No Pain Paresthesia on Injection Noted: No Resistance on Injection: Normal Image Stored and Saved: Yes Events: Uneventful and Well Tolerated
[2024-11-14] MEDS: ceFAZolin 3,000 MG in SODIUM CHLORIDE 0.9% IRRIGATIO 3,000 ML IRRIGATION ONE (08:10)
[2024-11-14] MEDS: ceFAZolin 1,000 MG in SODIUM CHLORIDE 0.9% 1,000 ML IRRIGATION ONE (08:10)
[2024-11-14] MEDS: LACTATED RINGERS 1,000 ML IV ONE (09:33)
[2024-11-14] MEDS ORDERED: NA PHOS,M-B/NA PHOS,DI-BA 133 ML ENEMA RECTAL PRN (09:57)
[2024-11-14] MEDS ORDERED: HYDROmorphone 0.5 MG/0.5 ML SYRINGE IVP PRN ×2 (09:57)
[2024-11-14] MEDS ORDERED: bisacodyL 10 MG SUPP RECTAL PRN (09:57)
[2024-11-14] MEDS ORDERED: NALOXONE 0.4 MG/ML 1 ML VIAL IV PRN (09:57)
[2024-11-14] MEDS ORDERED: ONDANSETRON 4 MG/2 ML VIAL IVP PRN (09:57)
[2024-11-14] MEDS ORDERED: traMADol 50 MG TAB PO PRN (09:57)
[2024-11-14] MEDS ORDERED: MAGNESIUM HYDROXIDE 2,400 MG/30 ML CUP PO PRN (09:57)
[2024-11-14] MEDS: ROPIVACAINE 1,100 MG, SODIUM CHLORIDE 0.9% 500 ML 330 ML, EMPTY PAIN BALL 1 EACH MISCELLANE PRN (10:05)
--- NOTE | 2024-11-14 11:11 | OP ---
OPERATIVE REPORT DATE OF SERVICE : 11/14/2024 PREOPERATIVE DIAGNOSIS: Right knee osteoarthrosis. POSTOPERATIVE DIAGNOSIS: Right knee osteoarthrosis. OPERATION: Right total knee arthroplasty. ANESTHESIA: Spinal with sedation. ESTIMATED BLOOD LOSS: 300 mL. TOURNIQUET TIME: 3 minutes at 250 mmHg. COMPLICATIONS: None apparent. DRAINS: None. DISPOSITION: Postanesthesia care unit. INDICATIONS: Tamica is a very pleasant 69-year-old female with longstanding history of right knee pain. History and physical examination are consistent with advanced right knee osteoarthrosis. She has been through significant nonoperative management up to this point. Further treatment options were discussed, and she has decided to go forward with the right total knee arthroplasty. Risks of procedure were discussed with her in detail. These risks include but are not limited to risk of infection, nerve damage, bleeding, pain, and a small risk of deep vein thrombosis, which could lead to fatal pulmonary embolism. There is also a small risk of loosening of the implant, which could require revision operation. The patient understands these risks. All of her questions were answered to her satisfaction. Appropriate informed consent was obtained. DESCRIPTION OF PROCEDURE: The patient was identified in preoperative holding area. Surgical site was marked by both the patient and myself. She was given 2 g of Ancef IV for prophylactic purposes. She was then transported to the operative suite. She was placed supine on the operating room table. Spinal anesthetic was then administered and dosed per the Anesthesia Department without apparent complication. An examination under anesthesia was then performed. The patient was 2 to 3 degrees shy of full extension. She had 90 degrees of flexion and the medial collateral ligament, lateral collateral ligament, and posterior cruciate ligaments were stable. A tourniquet was then placed high on the right upper thigh, well-padded in preparation for surgery. The patient's right lower extremity was then prepped and draped in usual sterile fashion. Standard surgical pause was undertaken to ensure that we were operating the correct site, and appropriate preoperative antibiotics were given. All staff in room were in agreement, and we proceeded. The outlines of the patella were marked with a surgical pen. A planned 12 cm vertical incision centered over the patella was marked with a surgical pen. The leg was then exsanguinated with an Esmarch dressing. The knee was then flexed, and tourniquet inflated to 250 mmHg. The total tourniquet time for the procedure was 3 minutes. Once the tourniquet was inflated, and I made the incision, she has significant venous tourniquet, which was secondary to her body habitus and the size of her leg. Once the tourniquet was deflated, we were able to coagulate using the Bovie fairly easily and the bleeding was under control quite quickly at that point. We did not reinflate the tourniquet for the rest of the entire procedure. The incision was then made with a 10 blade scalpel. Dissection carried down sharply to the overlying fascia. Great care was taken to minimize the skin flaps. Again, we encountered quite a bit of subcutaneous bleeding. All of this was coagulated with the Bovie and this was secondary to a venous tourniquet, and as such the tourniquet was deflated and we did not reinflate the tourniquet for the rest of the procedure. The knee was then exposed using a standard medial parapatellar approach. A small cuff of quadriceps tendon was then left for suturing. She was in quite a bit of varus preoperatively. A standard medial release was then made. Superficial medial collateral ligament was dissected off the bone around to the posterior aspect of the proximal tibia. The medial meniscus was then excised as well. The lateral meniscus was also released anteriorly. The leg was then externally rotated. The patella was everted. The knee was flexed. Retractors were then placed to protect the collateral ligaments. I then proceeded to remove the infrapatellar fat pad. This was excised sharply tangentially with fibers of the patellar tendon. I then proceeded to remove the peripheral osteophytes. This was done with a rongeur. I then proceeded with the distal femoral resection. She did have near full extension. A planned 9 mm resection was then done. The femoral canal was then entered in midline of the femur approximately 10 mm anterior to the origin of the posterior cruciate ligament. The blanca was then advanced down to the center of the femur and placed intramedullary. Based on the preoperative radiographs, the angle between the anatomic and mechanical axis of the femur was approximately 4 to 5 degrees. The valgus angle of the distal femoral cutting guide was then set at 4 degrees for the right knee. The distal femoral cutting guide was then advanced over the intramedullary blanca. This was seated firmly against the femur. Then as mentioned, I planned to take 9 mm off the distal femur. The cutting block was then secured on the femur with pins. The jig was then removed. The distal cut was made through the slot of the block. The pins were then removed and the distal femoral cutting block was removed. The accuracy of the distal femoral cuts was checked with 2 flat bars. I then proceeded with femoral sizing. Posterior referencing sizing guide was held firmly against the resected distal surface of the femur. The posterior condyles were resting on the posterior plane of the guide. The sizing guide was then placed on the anterior femur. The size was measured as a size 7. I then assessed for femoral rotation. The plan was for 3 degrees of external rotation. 3 degrees of external rotation was placed onto the jig. These holes were then marked. I then confirmed the rotation by 3 separate methods. This done using epicondylar axis as well as Whitesides line and posterior referencing. It was deemed that the external rotation was proper. I then went forward with placement of the femoral cutting block. This was placed over the previously placed pin holes. The Richie wing was then placed on the anterior slots to ensure that we would not notch the anterior femur with the anterior femoral cut. I then proceeded with the anterior femoral cut. This was flush with the anterior cortex of the femur. The posterior cuts were then made, followed by the anterior chamfer cut, then the posterior chamfer cut. The cutting block was then removed. Throughout the resection, the collateral ligaments were protected with retractors. I then placed a trial size 7 femur. It was slightly wide, but the narrow fit very nicely, and it fit flush with the distal end of the femur. The drill holes were then made. I then proceeded with the tibial cut. I planned for cruciate-retaining knee. The guide was placed and set for varus valgus and for slope. Height set for approximately 2 mm resection from the medial tibial plateau, which was the lower side. I was happy with the alignment and amount of resection. The cutting block was then pinned to the proximal tibia. The alignment blanca was removed. The proximal tibia was resected with a reciprocating saw. Again, this was done with retractors protecting the collateral ligaments as well as the posterior cruciate ligament. I then proceeded to evaluate the flexion and extension gaps. A 10 mm block was then placed. The flexion and extension gaps were equal. I then proceeded to resection of the posterior osteophytes. There were very minimal posterior osteophytes. This was done using a curved osteotome. This was resected the posterior osteophytes, and posterior capsular stripping was done off the posterior aspect of the femur at this time. The osteophytes were then removed. I then proceeded with resection of the patella. The thickness of the patella was measured using the caliper. The thickness was 22 mm. The thickness of the anticipated patellar dome was taken into account. Resection was then performed and confirmed to be equal in 4 quadrants using a caliper. Approximately 14 mm of bone remained after resection. A 29 x 8 standard patellar trial was then placed. The holes were drilled and the trial was then placed. I then proceeded with sizing tibial plate. A size D tibial plate fit very nicely. I then placed the trial femur, the tibial tray, and the patellar button. A 10 mm trial tibial insert was also placed. The components fit very nicely. She had full extension and flexion. The extension and flexion gaps were equal and stable to both varus and valgus stress. The patella tracked appropriately. The tibial tray rotation was then marked with a Bovie. This was externally rotated properly. I then proceeded with tibial preparation. I first drilled the femoral holes and removed the femoral component. The tibial tray was then set for proper external rotation as well as medial and lateral placement onto the tibia. It was then pinned in place. I then proceeded with punching the keel. I then decided to proceed with cementing of all our components. The knee was thoroughly irrigated with sterile saline solution via pulse lavage. The lateral geniculate artery was identified and cauterized. All blood was removed from the bone of the tibia femur and patella with pulsed lavage. I then proceeded with cementing. Two packs of antibiotic bone cement were prepared on the back table by certified surgical technician. I then proceeded with cementing the tibia first. The cement was impacted in the keel as well as deeply seated into the bone. A second coat of cement was then placed. The tibia was then impacted into place. Excess cement was removed with Kojo's and jokers. I then proceeded with cementing of the femoral component. The femoral component was also cemented using standard technique. Excess cement was removed. A 10 mm trial insert was then placed into the knee. It was brought into full extension with a constant axial load placed until the cement had hardened. The patellar component was then cemented. This held firmly with a compressive device until the cement had dried. When the cement had dried, the knee was taken out of extension. All excess cement was removed from around the prosthesis. I then trialed the knee with a 10 mm insert. Flexion and extension gaps were appropriate. The knee was stable. It came into full extension. I decided to go forward with a 10 mm medial congruent cross-linked cruciate- retaining tibial insert. Polyethylene was then placed on the tibial tray and locked into place. The knee was then reduced. The knee was again further irrigated with sterile saline solution with antibiotic added. The tourniquet was then deflated. Total tourniquet time for the procedure was 3 minutes at 250 mmHg. Final components were Alok Persona size 7 narrow cruciate-retaining femoral component, size D tibial tray, a 10 mm medial congruent cruciate-retaining polyethylene insert, and 29 x 8 mm patella. I then proceeded with closure. Again, the knee was thoroughly irrigated. The quadriceps tendon and the medial retinaculum were reapproximated with #2 Ethibond suture. The extensor mechanism was then closed with a running #2 Quill suture. Subcutaneous tissues were then closed with 2-0 Vicryl interrupted suture. The skin was closed with a running 3-0 Quill suture. Dermabond was applied at the incision. Sterile dressings were applied. All sponge and needle counts were deemed correct prior to closure. The patient tolerated the procedure without apparent complication. She was transferred to recovery room in stable condition. MMODL / IJN: [id number] /
[2024-11-14] MEDS: HYDROmorphone 0.5 MG/0.5 ML SYRINGE IVP PRN ×2 (11:14→12:45)
--- NOTE | 2024-11-14 11:40 | XR ---
EXAMINATION TYPE: XR knee limited RT DATE OF EXAM: 11/14/2024 10:35 AM COMPARISON: None CLINICAL INDICATION: Female, 69 years old with history of Evaluation for Postop abnormality and align ment; PHH, pain TECHNIQUE: XR knee limited RT 2 views submitted. FINDINGS: Status post total knee arthroplasty changes with hardware in appropriate alignment and in tact. No evidence of fracture. Subcutaneous lucencies and lucencies within the joint consistent with surgical changes. IMPRESSION: Status post total knee arthroplasty changes with hardware intact and appropriate alignment. No fractu res identified. [facility], , 11/14/2024 11:37 AM
[2024-11-14] MEDS: HYDROcodone/APAP 10-325MG 1 EACH TAB PO PRN (16:55)
[2024-11-14] MEDS: ceFAZolin 3 GM in SODIUM CHLORIDE 0.9% 100 ML IVPB SCH (16:55)
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
[2024-11-14] MEDS: ATORVASTATIN 40 MG TAB PO SCH (21:08)
[2024-11-14] MEDS: ASPIRIN 81 MG PO SCH (21:08)
[2024-11-14] MEDS: ACETAMINOPHEN TAB 325 MG TAB PO PRN (21:09)
[2024-11-14] MEDS: lamoTRIgine 25 MG TAB PO SCH (21:09)
[2024-11-14] MEDS: ESCITALOPRAM 20 MG TAB PO SCH (21:09)
[2024-11-14] MEDS: PANTOPRAZOLE 40 MG TABLET PO SCH (21:09)
[2024-11-14] MEDS: SENNOSIDES-DOCUSATE SODIUM 1 EACH TAB PO SCH (21:10)
[2024-11-14] MEDS: SOTALOL 120 MG TAB PO SCH (21:10)
[2024-11-15] MEDS: ANASTROZOLE 1 MG TAB PO SCH (08:13)
[2024-11-15] MEDS: ISOSORBIDE MONONITRATE ER 30 MG TAB.ER.24H PO SCH (08:13)
[2024-11-15] MEDS: hydroCHLOROthiazide 12.5 MG CAP PO SCH (08:13)
[2024-11-15 08:29] LABS: Basophils # (A) 0.02 X 10*3/uL (0.00-0.10); Basophils % (A) 0.1 %; Eosinophils # (A) 0 X 10*3/uL (0.04-0.35); Eosinophils % (A) 0 %; HCT 35.3 % (37.2-46.3); Lymphocytes % (A) 7.4 %; MCH 28.1 pg (27.0-32.0); MCHC 31.2 g/dL (32.0-37.0); MCV 90.3 FL (80.0-97.0); Mean Platelet Volume 10.9 FL (9.5-12.2); Monocytes # (A) 1.02 X 10*3/uL (0.20-1.00); Monocytes % (A) 6.8 %; NRBC Per 100 WBC 0 X 10*3/uL (0.00-0.01); Neutrophils % (A) 85.2 %; Platelet Count 239 X 10*3/uL (140-440); RBC 3.91 X 10*6/uL (4.10-5.20); RDW 14.4 % (11.5-14.5); WBC 14.91 X 10*3/uL (4.50-10.00)
[2024-11-15 08:33] LABS: BUN/Creat Ratio 20.75 Ratio (12.00-20.00); Blood Urea Nitrogen 16.6 mg/dL (9.0-27.0); Calcium 9.2 mg/dL (8.7-10.3); Carbon Dioxide 24.3 mmol/L (21.6-31.8); Chloride 100 mmol/L (96-109); Glucose 162 mg/dL (70-110); Magnesium 1.9 mg/dL (1.5-2.4); Potassium 4.7 mmol/L (3.5-5.5); Sodium 138 mmol/L (135-145)
--- NOTE | 2024-11-15 08:54 | P.PN ---
Progress Note - Text Progress Note Date: 11/15/24 (861) Anesthesiology Postop day 1 status post total knee arthroplasty with adductor canal catheter. Patient doing well. VAS 7 out of 10. Gross strength intact in lower extremity. Afebrile. Denies alterations in sensorium. Catheter site intact. Heart regular rate Lungs nonlabored Abdomen nondistended Assessment: Postop day 1 status post total knee arthroplasty with adductor canal catheter Plan: 1.All questions answered. Maintain catheter 2 more days with patient removal at home. Instructions to be given at discharge. 2.This note was dictated using [employer] software. Please be advised there is a potential for misspellings or errors in party plan demonstrator.
[2024-11-15] MEDS: HYDROcodone/APAP 10-325MG 1 EACH TAB PO PRN (09:30)
[2024-11-15] MEDS ORDERED: oxyCODONE-APAP 7.5-325MG 1 EACH TAB PO PRN (11:34)
--- NOTE | 2024-11-15 11:43 | P.PN ---
Subjective Progress Note Date: 11/15/24 Principal diagnosis: Right TKA Patient is seen at bedside this morning. She is postop day #1 from left total knee arthroplasty. She has pain at the surgical site as expected but denies any new complaints. She denies numbness, tingling or calf pain. Review of systems is negative for fever, chills, chest pain, shortness of breath or other Objective - Vital Signs Vital signs: Vital Signs Temp 97.8 F 11/15/24 07:38 Pulse 79 11/15/24 07:38 Resp 20 11/15/24 07:38 BP 156/90 11/15/24 07:38 Pulse Ox 95 11/15/24 07:38 FiO2 Intake & Output 11/14/24 11/15/24 11/15/24 18:59 06:59 18:59 Intake Total 1701 Output Total 300 Balance 1401 Weight 142.7 kg Intake: IV 1701 Output: Estimated Blood Loss 300 Other: Voiding Method Toilet Toilet # Voids 1 2 - Exam Inspection reveals a benign surgical wound. There is no active bleeding or drainage. Neurovascular status is intact throughout the lower extremity with motor and sensation fully intact. Calf is soft and nontender. 2+ dorsalis pedi s pulse and less than 2 second cap refill is present. - Constitutional General appearance: Present: no acute distress - Labs CBC & Chem 7: 11/15/24 04:10 11/15/24 04:10 Labs: Abnormal Lab Results - Last 24 Hours (Table) 11/15/24 11/15/24 Range/Units 04:10 04:10 WBC 14.91 H (4.50-10.00) X 10*3/uL RBC 3.91 L (4.10-5.20) X 10*6/uL Hgb 11.0 L (12.0-15.0) g/dL Hct 35.3 L (37.2-46.3) % MCHC 31.2 L (32.0-37.0) g/dL Immature Gran # 0.07 H (0.00-0.04) X 10*3/uL Neutrophils # 12.70 H (1.80-7.70) X 10*3/uL Monocytes # 1.02 H (0.20-1.00) X 10*3/uL Eosinophils # 0 L (0.04-0.35) X 10*3/uL Anion Gap 13.70 H (4.00-12.00) mmol/L BUN/Creatinine Ratio 20.75 H (12.00-20.00) Ratio Glucose 162 H (70-110) mg/dL Assessment and Plan (1) Osteoarthritis of right knee Narrative/Plan: She will continue with routine postop orthopedic protocol including pain management, wound care, PT, DVT prophylaxis and medical management. Expect that she will transfer to home tomorrow Current Visit: Yes Status: Acute Code(s): M17.11 - UNILATERAL PRIMARY OSTEOARTHRITIS, RIGHT KNEE SNOMED Code(s): 509102057641392 Time with Patient: Less than 30
[2024-11-15] MEDS: MULTIVITAMINS, THERA 1 EACH TAB PO SCH (13:33)
[2024-11-15] MEDS: oxyCODONE-APAP 7.5-325MG 1 EACH TAB PO PRN (13:34)
--- NOTE | 2024-11-15 15:50 | P.PN ---
Subjective Progress Note Date: 11/15/24 Hospital Course: Patient is a very pleasant 69-year-old female with a past medical history of paroxysmal atrial fibrillation status post ablation and placement of watchman's device, hypertension, hyperlipidemia, breast cancer status post partial right mastectomy and radiation treatment, TIA, and obstructive sleep apnea CPAP dependent nightly. She is currently admitted under orthopedic surgery team status post elective right total knee arthroplasty. We were consulted for medical management throughout hospitalization. Physical exam: Pt seen and fully evaluated at bedside. She reports having a difficult time this morning with pain control. Denies having any other complaints or needs at this time. She denies having any headache, lightheadedness, dizziness, chest pain, palpitations, shortness of breath, or experiencing any nausea, vomiting, or difficulties with urination. Vital signs reviewed and stable. General: Nontoxic, no distress and appears stated age. Obese. Derm: Skin warm and dry, normal coloration for ethnicity. Head: Atraumatic, normocephalic and symmetric. Eyes: EOM's intact, no lid lag, and anicteric sclera Mouth: no lip lesions, mucus membranes moist Cardiovascular: regular rate and rhythm with normal S1S2, no murmur, positive posterior tibial pulses bilaterally, and cap refill < 2 seconds. Lungs: Respirations even, regular, and unlabored on 2 L supplemental oxygen. Lungs CTA bilaterally, no rhonchi, no rales, no wheezing, and no accessory muscle usage. Abdominal: soft, nontender to palpation, no guarding, no appreciable organomega ly Ext: Movement and sensation intact.. No gross muscle atrophy, no edema, no contractures. Postoperative dressing and ice pack in place to right knee. Neuro: Speech clear, face symmetrical and CN II-XII grossly intact with no noted focal neuro deficits Psych: Alert and oriented to person, place, time, and situation. Appropriate and pleasant affect. Assessment and Plan of Care: Status post right total knee arthroplasty. -Management per primary admitting orthopedic surgery team including DVT prophylaxis, pain management, wound/dressing management, weightbearing, and PT/OT. -Patient currently on DVT prophylaxis with aspirin 81 mg twice daily. Acute postoperative blood loss anemia -Preoperative hemoglobin 12.5 and postoperative hemoglobin of 11.06. This is a stable and expected finding. No active bleeding and no need for transfusion or further interventions at this time. Leukocytosis -WBC count 14.91. No signs of infection, leukocytosis reactive secondary to surgical procedure. No need for further intervention. Obstructive sleep apnea -Continue CPAP nightly and while napping. Paroxysmal atrial fibrillation status post ablation and placement of watchman's device Hypertension Hyperlipidemia -Continue daily medication regimen with aspirin 81 mg daily, atorvastatin 40 mg nightly, isosorbide mononitrate 30 mg daily, and sotalol 120 mg twice daily. Breast cancer -Status post partial right mastectomy and radiation treatment. Recommend continued outpatient cancer screenings and patient to continue anastrozole 1 mg daily. Data and imaging reviewed: Vital signs reviewed. Blood pressure 156/90, heart rate 79, respiratory rate 20, temp 97.8 F, and SpO2 of 95% on 2 L. Postoperative labs reviewed. CBC showing mild leukocytosis with WBC count of 14.91 and acute postoperative blood loss anemia with hemoglobin of 11.06 preoperative hemoglobin of 12.5. BMP showing elevated anion gap of 13.70 and blood glucose of 162. Thank you for allowing us to participate in the care of this pleasant patient. Do not hesitate to contact us with questions. Someone can be reached from the [facility] hospitalist group all hours of the day at [phone] or via [employer]. Patient was seen independently by Nurse Practitioner. This document was prepared using [employer] dictation software. Please allow for errors in credit administration specialist while rare they do occur. Minh Street NP rendered care for this patient independently, reviewed the findings and plan as documented in the note above and agree with plan. I did not physically speak with or examine the patient on this date. Objective - Vital Signs Vital signs: Vital Signs Temp 97.8 F 11/15/24 07:38 Pulse 79 11/15/24 07:38 Resp 20 11/15/24 07:38 BP 156/90 11/15/24 07:38 Pulse Ox 95 11/15/24 07:38 FiO2 Intake & Output 11/14/24 11/15/24 11/15/24 18:59 06:59 18:59 Intake Total 1701 Output Total 300 Balance 1401 Weight 142.7 kg Intake: IV 1701 Output: Estimated Blood Loss 300 Other: Voiding Method Toilet # Voids 1 2 - Labs CBC & Chem 7: 11/15/24 04:10 11/15/24 04:10 Labs: Abnormal Lab Results - Last 24 Hours (Table) 11/15/24 11/15/24 Range/Units 04:10 04:10 WBC 14.91 H (4.50-10.00) X 10*3/uL RBC 3.91 L (4.10-5.20) X 10*6/uL Hgb 11.0 L (12.0-15.0) g/dL Hct 35.3 L (37.2-46.3) % MCHC 31.2 L (32.0-37.0) g/dL Immature Gran # 0.07 H (0.00-0.04) X 10*3/uL Neutrophils # 12.70 H (1.80-7.70) X 10*3/uL Monocytes # 1.02 H (0.20-1.00) X 10*3/uL Eosinophils # 0 L (0.04-0.35) X 10*3/uL Anion Gap 13.70 H (4.00-12.00) mmol/L BUN/Creatinine Ratio 20.75 H (12.00-20.00) Ratio Glucose 162 H (70-110) mg/dL
--- NOTE | 2024-11-16 08:03 | P.DS ---
Providers Expected date of discharge: 11/16/24 Attending physician: Tylor Bazzi Consults: 11/14/24 09:57 Consult Physician Routine Consulting Provider: Tashi Quintanilla Consult Reason/Comments: post op medical management Do you want consulting provider notified?: Yes Primary care physician: Dinora Avery DO - Discharge Diagnosis(es) (1) Osteoarthritis of right knee Current Visit: Yes Status: Acute (2) Status post total right knee replacement Current Visit: Yes Status: Acute Hospital Course: This is a 69-year-old female last seen in our office with complaints of right knee pain. Patient has known history of degenerative arthritis of the right knee and presented to discuss options. After discussion and consideration, patient elected to proceed with a total knee arthroplasty of the right knee. The patient was seen preoperatively and medically cleared for surgery by her primary care physician. The patient was admitted to [facility] and underwent right total knee arthroplasty on 11/14/[address] Bazzi. The procedure was performed without complications or sequelae. The patient has done well postoperatively. The patient was seen and evaluated at bedside today and denies any new complaints. Pain is reasonably controlled. Dressing is clean dry and intact. Incision looks fine with no erythema or active drainage. Calf is soft and nontender. The patient has full foot and ankle motion without difficulty. Patient's right lower extremity is neurovascular intact. Patient is orthopedically stable for discharge to home today. Pertinent Studies: Laboratory Tests 11/15/24 11/15/24 04:10 04:10 WBC 14.91 H RBC 3.91 L Hgb 11.0 L Hct 35.3 L BUN/Creatinine Ratio 20.75 H Glucose 162 H Patient Condition at Discharge: Stable Plan - Discharge Summary Discharge Rx Participant: Yes New Discharge Prescriptions: New oxyCODONE-APAP 7.5-325MG [Percocet 7.5-325 mg] 1 tab PO Q4HR PRN #30 tab PRN Reason: Pain Cephalexin [Keflex] 500 mg PO Q6HR 1 Days #20 cap Aspirin [Adult Low Dose Aspirin EC] 81 mg PO BID #60 tab Docusate [Colace] 100 mg PO BID #60 capsule Ondansetron [Zofran] 4 mg PO Q8HR PRN #21 tab PRN Reason: Nausea No Action Atorvastatin [Lipitor] 40 mg PO HS ALPRAZolam [Xanax] 1 mg PO Q8H PRN PRN Reason: Anxiety Isosorbide Mononitrate ER [Imdur] 30 mg PO DAILY Escitalopram [Lexapro] 20 mg PO HS Aspirin [Adult Low Dose Aspirin EC] 81 mg PO DAILY lamoTRIgine [LaMICtal] 75 mg PO HS Omeprazole [PriLOSEC] 40 mg PO HS Ibuprofen [Motrin] 800 mg PO Q8H PRN PRN Reason: Pain Anastrozole [Arimidex] 1 mg PO DAILY hydroCHLOROthiazide 12.5 mg PO DAILY Sotalol HCl [Betapace] 120 mg PO BID Allergy Relief 1 tab PO DAILY Discharge Medication List ALPRAZolam [Xanax] 1 mg PO Q8H PRN 10/22/21 [History] Anastrozole [Arimidex] 1 mg PO DAILY 10/22/21 [History] Atorvastatin [Lipitor] 40 mg PO HS 10/22/21 [History] Ibuprofen [Motrin] 800 mg PO Q8H PRN 10/22/21 [History] Omeprazole [PriLOSEC] 40 mg PO HS 10/22/21 [History] lamoTRIgine [LaMICtal] 75 mg PO HS 10/22/21 [History] Allergy Relief 1 tab PO DAILY 11/12/24 [History] Aspirin [Adult Low Dose Aspirin EC] 81 mg PO DAILY 11/12/24 [History] Escitalopram [Lexapro] 20 mg PO HS 11/12/24 [History] Isosorbide Mononitrate ER [Imdur] 30 mg PO DAILY 11/12/24 [History] Sotalol HCl [Betapace] 120 mg PO BID 11/12/24 [History] hydroCHLOROthiazide 12.5 mg PO DAILY 11/12/24 [History] Cephalexin [Keflex] 500 mg PO Q6HR 1 Days #20 cap 11/14/24 [Rx] Aspirin [Adult Low Dose Aspirin EC] 81 mg PO BID #60 tab 11/15/24 [Rx] Docusate [Colace] 100 mg PO BID #60 capsule 11/15/24 [Rx] Ondansetron [Zofran] 4 mg PO Q8HR PRN #21 tab 11/15/24 [Rx] oxyCODONE-APAP 7.5-325MG [Percocet 7.5-325 mg] 1 tab PO Q4HR PRN #30 tab 11/15/24 [Rx] Follow up Appointment(s)/Referral(s): Tylor Bazzi MD [STAFF PHYSICIAN] - 10 Days Activity/Diet/Wound Care/Special Instructions: WBAT Take meds as directed F/U in office keep wound clean and dry May shower in 3 days if no bleeding Discharge Disposition: HOME SELF-CARE
[2024-11-16 08:23] VITALS: BP 123/87; PULSE 75
[2024-11-16 09:03] VITALS: RESP 18; TEMP 98.2
--- NOTE | 2024-11-16 13:37 | P.PN ---
Subjective Progress Note Date: 11/16/24 Hospital Course: Patient is a very pleasant 69-year-old female with a past medical history of paroxysmal atrial fibrillation status post ablation and placement of watchman's device, hypertension, hyperlipidemia, breast cancer status post partial right mastectomy and radiation treatment, TIA, and obstructive sleep apnea CPAP dependent nightly. She is currently admitted under orthopedic surgery team status post elective right total knee arthroplasty. We were consulted for medical management throughout hospitalization. Physical exam: Pt seen and fully evaluated at bedside. She was sitting up in chair at bedside reports pain is much better controlled today since changing pain medication to Percocet. Patient denies having any additional concerns, pain or complaints at this time. Patient reports she is looking forward to going home today.. Vital signs reviewed and stable. General: Nontoxic, no distress and appears stated age. Obese. Derm: Skin warm and dry, normal coloration for ethnicity. Head: Atraumatic, normocephalic and symmetric. Eyes: EOM's intact, no lid lag, and anicteric sclera Mouth: no lip lesions, mucus membranes moist Cardiovascular: regular rate and rhythm with normal S1S2, no murmur, positive posterior tibial pulses bilaterally, and cap refill < 2 seconds. Lungs: Respirations even, regular, and unlabored on 2 L supplemental oxygen. Avis gs CTA bilaterally, no rhonchi, no rales, no wheezing, and no accessory muscle usage. Abdominal: soft, nontender to palpation, no guarding, no appreciable organomegaly Ext: Movement and sensation intact.. No gross muscle atrophy, no edema, no contractures. Postoperative dressing and ice pack in place to right knee. Neuro: Speech clear, face symmetrical and CN II-XII grossly intact with no noted focal neuro deficits Psych: Alert and oriented to person, place, time, and situation. Appropriate and pleasant affect. Assessment and Plan of Care: Status post right total knee arthroplasty. -Management per primary admitting orthopedic surgery team including DVT prophylaxis, pain management, wound/dressing management, weightbearing, and PT/OT. -Patient currently on DVT prophylaxis with aspirin 81 mg twice daily. Acute postoperative blood loss anemia -Preoperative hemoglobin 12.5 and postoperative hemoglobin of 11.0. This is a stable and expected finding. No active bleeding and no need for transfusion or further interventions at this time. Leukocytosis -WBC count 14.91. No signs of infection, leukocytosis reactive secondary to surgical procedure. No need for further intervention. Obstructive sleep apnea -Continue CPAP nightly and while napping. Paroxysmal atrial fibrillation status post ablation and placement of watchman's device Hypertension Hyperlipidemia -Continue daily medication regimen with aspirin 81 mg daily, atorvastatin 40 mg nightly, isosorbide mononitrate 30 mg daily, and sotalol 120 mg twice daily. Breast cancer -Status post partial right mastectomy and radiation treatment. Recommend continued outpatient cancer screenings and patient to continue anastrozole 1 mg daily. Data and imaging reviewed: Vital signs reviewed. Blood pressure 123/87, heart rate 75, respiratory rate 18, temp 98.2 F, and SpO2 of 94% on room air. Postoperative labs reviewed. CBC showing mild leukocytosis with WBC count of 14.91 and acute postoperative blood loss anemia with hemoglobin of 11.06 preoperative hemoglobin of 12.5. BMP showing elevated anion gap of 13.70 and blood glucose of 162. Thank you for allowing us to participate in the care of this pleasant patient. Do not hesitate to contact us with questions. Someone can be reached from the [facility] hospitalist group all hours of the day at [phone] or via [employer]. Patient was seen independently by Nurse Practitioner. This document was prepared using [employer] dictation software. Please allow for errors in head cleaning porter while rare they do occur. Minh Street NP rendered care for this patient independently, reviewed the findings and plan as documented in the note above and agree with plan. I did not physically speak with or examine the patient on this date. Objective - Vital Signs Vital signs: Vital Signs Temp 98.3 F 11/16/24 02:00 Pulse 75 11/16/24 08:23 Resp 16 11/16/24 02:00 BP 123/87 11/16/24 08:23 Pulse Ox 88 L 11/16/24 02:00 FiO2 Intake & Output 11/15/24 11/16/24 11/16/24 18:59 06:59 18:59 Other: Voiding Method Toilet Toilet # Voids 1 1 - Labs CBC & Chem 7: 11/15/24 04:10 11/15/24 04:10 Labs: Abnormal Lab Results - Last 24 Hours (Table) 11/15/24 11/15/24 Range/Units 04:10 04:10 WBC 14.91 H (4.50-10.00) X 10*3/uL RBC 3.91 L (4.10-5.20) X 10*6/uL Hgb 11.0 L (12.0-15.0) g/dL Hct 35.3 L (37.2-46.3) % MCHC 31.2 L (32.0-37.0) g/dL Immature Gran # 0.07 H (0.00-0.04) X 10*3/uL Neutrophils # 12.70 H (1.80-7.70) X 10*3/uL Monocytes # 1.02 H (0.20-1.00) X 10*3/uL Eosinophils # 0 L (0.04-0.35) X 10*3/uL Anion Gap 13.70 H (4.00-12.00) mmol/L BUN/Creatinine Ratio 20.75 H (12.00-20.00) Ratio Glucose 162 H (70-110) mg/dL
== END 2024-11-16 10:59 | disposition home or self-care (01) ==
LOC: OR 06:13 → 4SSUR 09:47 → OR 11-16 10:59
PROVIDERS: ATTEND Orthopaedic Surgery Sports Medicine
DX: M17.11 Unilateral primary osteoarthritis, right knee (principal); Z88.5 Allergy status to narcotic agent
CPT/HCPCS: 97161; 64999; 64448; 80048; 83735; 85025; 73560; 27447; C1776; C1713; C1751; J2250; J1100; J0690 ×3; J2405; J3010; S0170 ×2; J2795; J1171 ×2